=== PATIENT | male | born 1980 | race Caucasian/White ===

== ENCOUNTER 2023-09-02 13:55 | Emergency (ER) | payer OTHER ==
[~2023-09-02] VITALS: Ht 172.7 cm; Wt 70.3 kg
[2023-09-02] MEDS ORDERED: OXYC5CAP18 PO (14:56)
[2023-09-02] MEDS ORDERED: CYCL5TAB PO (14:56)
[2023-09-02 15:15] VITALS: BP 131/77; TEMP 98.4; O2SAT 100
== END 2023-09-02 15:16 | disposition home or self-care (01) ==
LOC: ER 13:55
DX: S16.1XXA Strain of muscle, fascia and tendon at neck level, initial encounter (principal); M54.16 Radiculopathy, lumbar region; Z79.899 Other long term (current) drug therapy; Z60.2 Problems related to living alone; V89.0XXA Person injured in unspecified motor-vehicle accident, nontraffic, initial encounter; Y93.89 Activity, other specified; Y92.89 Other specified places as the place of occurrence of the external cause; Y99.8 Other external cause status